=== PATIENT | female | born 1960 | race Caucasian/White ===

== ENCOUNTER 2017-09-07 19:34 | Emergency (ER) | payer MEDICARE, OTHER | END 2017-09-07 23:21 | disposition home or self-care (01) | LOC: E/R 19:34 | DX: T82.49XA Other complication of vascular dialysis catheter, initial encounter (principal); I12.0 Hypertensive chronic kidney disease with stage 5 chronic kidney disease or end stage renal disease; N18.6 End stage renal disease; E11.22 Type 2 diabetes mellitus with diabetic chronic kidney disease; Y82.8 Other medical devices associated with adverse incidents; Z99.2 Dependence on renal dialysis | CPT/HCPCS: 93931; 99284-25 ==

== ENCOUNTER 2017-09-13 05:03 | Inpatient (IN) | payer MEDICARE, OTHER ==
[2017-09-13 05:23] LABS: DO PEDI ANTIBODY SCREEN? 1
[2017-09-13 06:01] LABS: ADD MAN DIFF? NO
[2017-09-13 06:02] LABS: BASOPHIL # 0.1 10^3/ul (0.0-0.1); BASOPHILS % 0.5 % (0.0-2.0); EOSINOPHILS # 0.2 10^3/ul (0.0-0.5); EOSINOPHILS % 1.7 % (0.0-7.0); HEMATOCRIT 22.5 % (37.0-47.0); HEMOGLOBIN 7.1 g/dl (12.0-16.0); LYMPHOCYTES # 3.9 10^3/ul (0.8-2.9); LYMPHOCYTES % 34.1 % (15.0-51.0); MEAN CORPUSCULAR HGB CONC 31.6 g/dl (32.0-37.0); MEAN CORPUSCULAR VOLUME 98.3 fl (82.0-101.0); MONOCYTE # 0.7 10^3/ul (0.3-0.9); MONOCYTES % 6.1 % (0.0-11.0); NEUTROPHIL # 6.5 10^3/ul (1.6-7.5); PLATELET COUNT 204 10^3/UL (140-415); RED BLOOD COUNT 2.29 10^6/ul (4.20-5.40); RED CELL DISTRIBUTION WIDTH 14.1 % (11.5-14.5)
[2017-09-13 06:02] LABS: WHITE BLOOD COUNT 11.5 10^3/ul (4.8-10.8)
[2017-09-13 06:29] LABS: ANION GAP 27 (8-16); BLOOD UREA NITROGEN 35 mg/dl (7-20); CARBON DIOXIDE 18 mmol/L (21-31); CHLORIDE 102 mmol/L (97-110); CREATININE 5.92 mg/dl (0.44-1.00); GLUCOSE 258 mg/dl (70-220); POTASSIUM 4.1 mmol/L (3.5-5.1); SODIUM 143 mmol/L (135-144)
[2017-09-13 06:38] LABS: INR 1.14; PROTIME 14.8 Sec (11.9-14.9); PT RATIO 1.2
[2017-09-13 06:39] LABS: PARTIAL THROMBOPLASTIN TIME 36.5 Sec (25.0-35.0)
[2017-09-13 07:12] LABS: IMMEDIATE SPIN CROSSMATCH 1 5
[2017-09-13] MEDS ORDERED: ONDANSETRON 4 MG INJ IV ×3 (11:30→17:30)
[2017-09-13] MEDS: ACETAMINOPHEN 325 MG TAB PO (12:43)
[2017-09-13] MEDS ORDERED: BISACODYL 10 MG SUPP PR (14:30)
[2017-09-13] MEDS ORDERED: MAGNESIUM HYDROXIDE 30ML CUP PO (14:30)
[2017-09-13] MEDS ORDERED: DOCUSATE SODIUM 100 MG CAP PO (14:30)
[2017-09-13] MEDS ORDERED: NACL 0.9% 3 ML SYG IV (14:30)
[2017-09-13] MEDS ORDERED: ACETAMINOPHEN 650 MG SUPP PR (14:30)
[2017-09-13] MEDS ORDERED: GLUCAGON 1 MG INJ IM (15:00)
[2017-09-13] MEDS ORDERED: GLUCOSE GEL 15 GRAM TUBE BUCCAL (15:00)
[2017-09-13] MEDS ORDERED: GLUCOSE GEL 15 GRAM TUBE PO ×2 (15:00)
[2017-09-13] MEDS ORDERED: DEXTROSE 50% 50 ML SYRINGE IV ×2 (15:00)
[2017-09-13] MEDS ORDERED: ROCURONIUM 50 MG INJ (15:05)
[2017-09-13] MEDS ORDERED: PROPOFOL 20 ML (15:05)
[2017-09-13] MEDS ORDERED: LIDOCAINE 2% (SDV) 5 ML INJ (15:05)
[2017-09-13] MEDS ORDERED: SUCCINYLCHOLINE CHLORIDE 100 MG/5 ML SYG IV (15:05)
[2017-09-13] MEDS ORDERED: NEOSTIGMINE 3 MG/3 ML SYRINGE (15:05)
[2017-09-13] MEDS ORDERED: GLYCOPYRROLATE 0.4 MG INJ (15:05)
[2017-09-13] MEDS ORDERED: CEFAZOLIN 1 GM INJ (15:34)
[2017-09-13] MEDS: LIDOCAINE 1% (MPF) 30 ML INJ (16:47)
[2017-09-13] MEDS: HEPARIN 1000 UNITS/ML 10 ML INJ (16:47)
[2017-09-13] MEDS ORDERED: METOCLOPRAMIDE 10 MG INJ (16:52)
[2017-09-13] MEDS ORDERED: ONDANSETRON 4 MG INJ (16:52)
[2017-09-13 17:03] LABS: IRON 97 ug/dl (35-150)
[2017-09-13] MEDS ORDERED: MEPERIDINE 25 MG INJ (17:12)
[2017-09-13 17:14] LABS: % IRON SATURATION 67 % SAT (22-52); TOTAL IRON BINDING CAPACITY 145 ug/dl (241-421)
[2017-09-13] MEDS ORDERED: EPHEDrine SULFATE 50 MG/5 ML SYG IV (17:30)
[2017-09-13] MEDS ORDERED: OXYCODONE/ACETAMINOPHEN (5/325) TAB PO ×2 (17:30)
[2017-09-13] MEDS ORDERED: MIDAZOLAM 1 MG/ML 2 ML INJ IV (17:30)
[2017-09-13] MEDS ORDERED: DIPHENHYDRAMINE 50 MG INJ IV (17:30)
[2017-09-13] MEDS ORDERED: MEPERIDINE 25 MG INJ IV (17:30)
[2017-09-13] MEDS ORDERED: LABETALOL HCL 20MG INJ IV (17:30)
[2017-09-13] MEDS ORDERED: FENTAnyl 50 MCG/ML VIAL IV ×3 (17:30)
[2017-09-13] MEDS ORDERED: HYDROmorphONE 1 MG/5 ML IV SYRINGE IV ×2 (17:30)
[2017-09-13] MEDS ORDERED: hydrALAzine 20 MG INJ IV (17:30)
[2017-09-13] MEDS ORDERED: METOCLOPRAMIDE 10 MG INJ IV (17:30)
[2017-09-13] MEDS ORDERED: SEVELAMER CARBONATE 0.8 GM PKT PO (18:00)
[2017-09-13] MEDS: INSULIN ASPART [NOVOLOG] 3 ML PEN SC ×2 (18:00→22:00)
[2017-09-13] MEDS: HYDROmorphONE 1 MG/5 ML IV SYRINGE IV (18:01)
[2017-09-13] MEDS: morphine 2 MG INJ IV (18:40)
[2017-09-13] MEDS: PIPER-TAZO 2.25 GM (PMX) 50 ML IVPB (18:43)
[2017-09-13] MEDS: HYDROCODONE/APAP (5/325) TAB PO (20:51)
[2017-09-13] MEDS: METOPROLOL 25 MG TAB PO (20:52)
[2017-09-13] MEDS: ATORVASTATIN 40 MG TAB PO (20:52)
[2017-09-13 21:05] LABS: HEMOGLOBIN 8.2 g/dl (12.0-16.0)
[2017-09-14] MEDS: ACCU-CHEK XX (02:00)
[2017-09-14] MEDS: hydrALAzine 20 MG INJ IV ×2 (02:43→12:34)
[2017-09-14] MEDS: PIPER-TAZO 2.25 GM (PMX) 50 ML IVPB ×4 (05:29→23:15)
[2017-09-14] MEDS ORDERED: PANTOPRAZOLE 40 MG INJ IV (06:00)
[2017-09-14 06:05] LABS: ADD MAN DIFF? NO
[2017-09-14 06:07] LABS: WHITE BLOOD COUNT 7.7 10^3/ul (4.8-10.8)
[2017-09-14 06:07] LABS: BASOPHILS % 0.4 % (0.0-2.0); EOSINOPHILS # 0.1 10^3/ul (0.0-0.5); EOSINOPHILS % 1.3 % (0.0-7.0); HEMATOCRIT 22.1 % (37.0-47.0); HEMOGLOBIN 7.3 g/dl (12.0-16.0); LYMPHOCYTES % 13.1 % (15.0-51.0); MEAN CORPUSCULAR HEMOGLOBIN 29.7 pg (29.0-33.0); MEAN CORPUSCULAR VOLUME 89.8 fl (82.0-101.0); MEAN PLATELET VOLUME 10.4 fl (7.4-10.4); MONOCYTE # 0.5 10^3/ul (0.3-0.9); NEUTROPHILS % 77.8 % (39.0-77.0); PLATELET COUNT 147 10^3/UL (140-415); RED BLOOD COUNT 2.46 10^6/ul (4.20-5.40); RED CELL DISTRIBUTION WIDTH 15.5 % (11.5-14.5)
[2017-09-14 06:24] LABS: HEMOGLOBIN A1C 5.1 % (0-5.9)
[2017-09-14 06:43] LABS: ALANINE AMINOTRANSFERASE 23 IU/L (13-69); ALBUMIN 2.8 g/dl (3.3-4.9); ALBUMIN/GLOBULIN RATIO 1.07; ALKALINE PHOSPHATASE 67 IU/L (42-121); ANION GAP 16 (8-16); ASPARTATE AMINO TRANSFERASE 18 IU/L (15-46); BLOOD UREA NITROGEN 56 mg/dl (7-20); CARBON DIOXIDE 26 mmol/L (21-31); CHLORIDE 106 mmol/L (97-110); CHOL/HDL RATIO 2.5 RATIO; CHOLESTEROL 88 mg/dl (100-200); CREATININE 6.73 mg/dl (0.44-1.00); GLUCOSE 87 mg/dl (70-220); HDL CHOLESTEROL 34 mg/dl (37-92); LDL CHOLESTEROL,CALCULATED 32 mg/dl; MAGNESIUM 2.1 mg/dl (1.7-2.5); PHOSPHORUS 6.2 mg/dl (2.5-4.9); POTASSIUM 4.8 mmol/L (3.5-5.1); SODIUM 143 mmol/L (135-144); TOTAL PROTEIN 5.4 g/dl (6.1-8.1); TRIGLYCERIDES 108 mg/dl (0-149)
[2017-09-14 06:52] LABS: FREE THYROXINE INDEX (Calc) 3.35 ug/ml (0.65-3.89); T3 UPTAKE 37.2 % (23.5-40.5)
[2017-09-14] MEDS: INSULIN ASPART [NOVOLOG] 3 ML PEN SC ×4 (08:15→20:40)
[2017-09-14] MEDS: SEVELAMER CARBONATE 800 MG TABLET PO ×2 (08:20→12:34)
[2017-09-14] MEDS: PANTOPRAZOLE (EC) 40 MG TAB PO (08:20)
[2017-09-14] MEDS: METOPROLOL 25 MG TAB PO ×3 (09:00→20:40)
[2017-09-14] MEDS: AMLODIPINE 10 MG TAB PO ×2 (09:00→13:07)
[2017-09-14] MEDS: FUROSEMIDE 40 MG TAB PO (09:00)
[2017-09-14 13:04] LABS: HEPATITIS B SURFACE ANTIGEN NEGATIVE (NEGATIVE)
[2017-09-14] MEDS: morphine 2 MG INJ IV (13:08)
[2017-09-14] MEDS: LORAZEPAM 2 MG INJ IV (13:40)
[2017-09-14] MEDS ORDERED: ONDANSETRON 4 MG INJ IV (14:00)
[2017-09-14] MEDS ORDERED: ACETAMINOPHEN 325 MG TAB PO (14:00)
[2017-09-14] MEDS ORDERED: SOD CHLORIDE 0.9% 250 ML IV* (14:17)
[2017-09-14] MEDS: LABETALOL HCL 20MG INJ IV (16:20)
[2017-09-14] MEDS: EPOETIN 10000 UNITS/1 ML INJ (ESRD) SC (17:00)
[2017-09-14] MEDS: SEVELAMER CARBONATE 0.8 GM PKT PO (18:05)
[2017-09-14] MEDS: ATORVASTATIN 40 MG TAB PO (20:42)
[2017-09-15] MEDS: ACCU-CHEK XX (02:00)
[2017-09-15 02:01] LABS: HEPATITIS B SURFACE ANTIBODY POSITIVE (NEGATIVE)
[2017-09-15] MEDS: HYDROCODONE/APAP (5/325) TAB PO (04:38)
[2017-09-15] MEDS: PIPER-TAZO 2.25 GM (PMX) 50 ML IVPB ×2 (07:45→18:52)
[2017-09-15] MEDS: INSULIN ASPART [NOVOLOG] 3 ML PEN SC ×4 (08:00→20:33)
[2017-09-15] MEDS: SEVELAMER CARBONATE 0.8 GM PKT PO ×3 (08:42→17:26)
[2017-09-15] MEDS: FUROSEMIDE 40 MG TAB PO (08:46)
[2017-09-15] MEDS: PANTOPRAZOLE (EC) 40 MG TAB PO (08:48)
[2017-09-15] MEDS: METOPROLOL 25 MG TAB PO ×2 (08:49→20:27)
[2017-09-15] MEDS: AMLODIPINE 10 MG TAB PO (08:49)
[2017-09-15 09:10] LABS: ADD MAN DIFF? NO
[2017-09-15 09:15] LABS: WHITE BLOOD COUNT 7.1 10^3/ul (4.8-10.8)
[2017-09-15 09:15] LABS: BASOPHILS % 0.4 % (0.0-2.0); EOSINOPHILS # 0.1 10^3/ul (0.0-0.5); EOSINOPHILS % 1.3 % (0.0-7.0); HEMATOCRIT 24.5 % (37.0-47.0); HEMOGLOBIN 8.2 g/dl (12.0-16.0); LYMPHOCYTES # 0.8 10^3/ul (0.8-2.9); LYMPHOCYTES % 11.8 % (15.0-51.0); MEAN CORPUSCULAR HEMOGLOBIN 29.8 pg (29.0-33.0); MEAN CORPUSCULAR HGB CONC 33.5 g/dl (32.0-37.0); MEAN CORPUSCULAR VOLUME 89.1 fl (82.0-101.0); MEAN PLATELET VOLUME 9.5 fl (7.4-10.4); MONOCYTE # 0.5 10^3/ul (0.3-0.9); MONOCYTES % 6.8 % (0.0-11.0); NEUTROPHIL # 5.6 10^3/ul (1.6-7.5); NEUTROPHILS % 79.4 % (39.0-77.0); PLATELET COUNT 145 10^3/UL (140-415); RED BLOOD COUNT 2.75 10^6/ul (4.20-5.40); RED CELL DISTRIBUTION WIDTH 15.1 % (11.5-14.5)
[2017-09-15 09:37] LABS: ANION GAP 11 (8-16); BLOOD UREA NITROGEN 16 mg/dl (7-20); CALCIUM 8.9 mg/dl (8.4-10.2); CARBON DIOXIDE 30 mmol/L (21-31); CHLORIDE 103 mmol/L (97-110); CREATININE 3.26 mg/dl (0.44-1.00); GLUCOSE 86 mg/dl (70-220); MAGNESIUM 1.9 mg/dl (1.7-2.5); PHOSPHORUS 3.7 mg/dl (2.5-4.9); POTASSIUM 4.2 mmol/L (3.5-5.1); SODIUM 140 mmol/L (135-144)
[2017-09-15] MEDS: ACETAMINOPHEN 325 MG TAB PO (14:37)
[2017-09-15 19:16] LABS: FOLATE > 20.0 ng/ml (2.8-20.0)
[2017-09-15] MEDS: ATORVASTATIN 40 MG TAB PO (20:27)
[2017-09-16] MEDS: PIPER-TAZO 2.25 GM (PMX) 50 ML IVPB ×4 (00:26→21:43)
[2017-09-16] MEDS: HYDROCODONE/APAP (5/325) TAB PO (00:30)
[2017-09-16] MEDS: ACCU-CHEK XX (02:00)
[2017-09-16] MEDS: hydrALAzine 20 MG INJ IV ×3 (05:20→21:05)
[2017-09-16 06:09] LABS: ADD MAN DIFF? NO
[2017-09-16 06:24] LABS: BASOPHILS % 0.4 % (0.0-2.0); EOSINOPHILS # 0.2 10^3/ul (0.0-0.5); EOSINOPHILS % 2.2 % (0.0-7.0); HEMATOCRIT 26.8 % (37.0-47.0); LYMPHOCYTES % 12.8 % (15.0-51.0); MEAN CORPUSCULAR HEMOGLOBIN 29.9 pg (29.0-33.0); MEAN CORPUSCULAR HGB CONC 33.6 g/dl (32.0-37.0); MEAN PLATELET VOLUME 9.1 fl (7.4-10.4); MONOCYTE # 0.4 10^3/ul (0.3-0.9); MONOCYTES % 5.6 % (0.0-11.0); NEUTROPHILS % 78.3 % (39.0-77.0); PLATELET COUNT 149 10^3/UL (140-415); RED BLOOD COUNT 3.01 10^6/ul (4.20-5.40); RED CELL DISTRIBUTION WIDTH 14.8 % (11.5-14.5)
[2017-09-16 06:24] LABS: WHITE BLOOD COUNT 7.6 10^3/ul (4.8-10.8)
[2017-09-16 06:30] LABS: ANION GAP 14 (8-16); BLOOD UREA NITROGEN 29 mg/dl (7-20); CALCIUM 9.1 mg/dl (8.4-10.2); CARBON DIOXIDE 28 mmol/L (21-31); CHLORIDE 103 mmol/L (97-110); CREATININE 4.83 mg/dl (0.44-1.00); GLUCOSE 99 mg/dl (70-220); POTASSIUM 4.7 mmol/L (3.5-5.1); SODIUM 140 mmol/L (135-144)
[2017-09-16] MEDS: SEVELAMER CARBONATE 0.8 GM PKT PO ×3 (08:28→17:23)
[2017-09-16] MEDS: PANTOPRAZOLE (EC) 40 MG TAB PO (08:30)
[2017-09-16] MEDS: FUROSEMIDE 40 MG TAB PO (08:32)
[2017-09-16] MEDS: METOPROLOL 25 MG TAB PO ×2 (08:32→20:28)
[2017-09-16] MEDS: AMLODIPINE 10 MG TAB PO (08:33)
[2017-09-16] MEDS: ACETAMINOPHEN 325 MG TAB PO (12:10)
[2017-09-16] MEDS: morphine LIQ (10 MG/5 ML) CUP PO (12:37)
[2017-09-16] MEDS: ATORVASTATIN 40 MG TAB PO (20:28)
[2017-09-17] MEDS: hydrALAzine 20 MG INJ IV ×4 (02:15→23:02)
[2017-09-17] MEDS: PIPER-TAZO 2.25 GM (PMX) 50 ML IVPB ×3 (06:32→22:08)
[2017-09-17] MEDS: PANTOPRAZOLE (EC) 40 MG TAB PO (06:32)
[2017-09-17 07:15] LABS: ADD MAN DIFF? NO
[2017-09-17 07:20] LABS: WHITE BLOOD COUNT 7.1 10^3/ul (4.8-10.8)
[2017-09-17 07:20] LABS: BASOPHILS % 0.3 % (0.0-2.0); EOSINOPHILS # 0.2 10^3/ul (0.0-0.5); EOSINOPHILS % 3.4 % (0.0-7.0); HEMATOCRIT 27.2 % (37.0-47.0); LYMPHOCYTES % 14.6 % (15.0-51.0); MEAN CORPUSCULAR HEMOGLOBIN 29.2 pg (29.0-33.0); MEAN CORPUSCULAR HGB CONC 33.1 g/dl (32.0-37.0); MEAN CORPUSCULAR VOLUME 88.3 fl (82.0-101.0); MEAN PLATELET VOLUME 9.1 fl (7.4-10.4); MONOCYTE # 0.4 10^3/ul (0.3-0.9); MONOCYTES % 5.6 % (0.0-11.0); NEUTROPHIL # 5.4 10^3/ul (1.6-7.5); NEUTROPHILS % 75.3 % (39.0-77.0); PLATELET COUNT 161 10^3/UL (140-415); RED BLOOD COUNT 3.08 10^6/ul (4.20-5.40); RED CELL DISTRIBUTION WIDTH 14.7 % (11.5-14.5)
[2017-09-17 07:42] LABS: ANION GAP 14 (8-16); BLOOD UREA NITROGEN 39 mg/dl (7-20); CALCIUM 9.6 mg/dl (8.4-10.2); CARBON DIOXIDE 28 mmol/L (21-31); CHLORIDE 101 mmol/L (97-110); CREATININE 6.43 mg/dl (0.44-1.00); GLUCOSE 83 mg/dl (70-220); POTASSIUM 5.4 mmol/L (3.5-5.1); SODIUM 138 mmol/L (135-144)
[2017-09-17] MEDS ORDERED: NIFEdipine (XL) 30 MG TAB PO (09:00)
[2017-09-17] MEDS: SEVELAMER CARBONATE 0.8 GM PKT PO ×3 (09:02→18:15)
[2017-09-17] MEDS: METOPROLOL 25 MG TAB PO ×2 (11:02→20:31)
[2017-09-17] MEDS: LISINOPRIL 10 MG TAB PO ×2 (12:01→20:31)
[2017-09-17] MEDS: AMLODIPINE 10 MG TAB PO (12:02)
[2017-09-17] MEDS: HEPARIN 1000 UNITS/ML 10 ML INJ CATHETER (12:55)
[2017-09-17] MEDS: FUROSEMIDE 40 MG TAB PO (13:36)
[2017-09-17] MEDS: EPOETIN 10000 UNITS/1 ML INJ (ESRD) SC (18:16)
[2017-09-17] MEDS: ATORVASTATIN 40 MG TAB PO (20:30)
[2017-09-18] MEDS: hydrALAzine 20 MG INJ IV (05:28)
[2017-09-18] MEDS: PIPER-TAZO 2.25 GM (PMX) 50 ML IVPB ×3 (06:17→21:41)
[2017-09-18] MEDS: PANTOPRAZOLE (EC) 40 MG TAB PO (06:36)
[2017-09-18] MEDS: SEVELAMER CARBONATE 0.8 GM PKT PO ×3 (09:31→17:31)
[2017-09-18] MEDS: FUROSEMIDE 40 MG TAB PO (09:33)
[2017-09-18] MEDS: LISINOPRIL 10 MG TAB PO ×2 (09:34→20:16)
[2017-09-18] MEDS: AMLODIPINE 10 MG TAB PO (09:34)
[2017-09-18] MEDS: METOPROLOL 25 MG TAB PO ×2 (09:35→20:16)
[2017-09-18] MEDS: ATORVASTATIN 40 MG TAB PO (20:16)
[2017-09-19] MEDS: hydrALAzine 20 MG INJ IV ×2 (02:11→19:56)
[2017-09-19] MEDS: HYDROCODONE/APAP (5/325) TAB PO (02:12)
[2017-09-19] MEDS: PIPER-TAZO 2.25 GM (PMX) 50 ML IVPB ×2 (05:49→14:00)
[2017-09-19] MEDS: PANTOPRAZOLE (EC) 40 MG TAB PO (06:45)
[2017-09-19] MEDS: METOPROLOL 25 MG TAB PO ×2 (08:46→19:56)
[2017-09-19] MEDS: SEVELAMER CARBONATE 0.8 GM PKT PO ×3 (08:46→18:28)
[2017-09-19] MEDS: FUROSEMIDE 40 MG TAB PO (08:46)
[2017-09-19] MEDS: AMLODIPINE 10 MG TAB PO (08:47)
[2017-09-19] MEDS: LISINOPRIL 10 MG TAB PO ×2 (08:47→19:56)
[2017-09-19] MEDS: ACETAMINOPHEN 325 MG TAB PO ×2 (12:37→19:56)
[2017-09-19] MEDS: EPOETIN 10000 UNITS/1 ML INJ (ESRD) SC (18:29)
[2017-09-19] MEDS: HEPARIN 1000 UNITS/ML 10 ML INJ CATHETER (18:33)
[2017-09-19] MEDS: FLUCONAZOLE 100 MG TAB PO (19:09)
[2017-09-19] MEDS: ATORVASTATIN 40 MG TAB PO (19:56)
== END 2017-09-19 21:02 | disposition home or self-care (01) | DRG 252 ==
LOC: MS4 09-14 15:15 → E/R 05:03 → MS2 11:21
PROVIDERS: Internal Medicine
PROC: 03L70ZZ Occlusion of Right Brachial Artery, Open Approach (ICD-10-PCS; principal; 2017-09-13 15:00)
PROC: 0XP Anatomical Regions, Upper Extremities, Removal (ICD-10-PCS; 2017-09-13 15:00)
PROC: 2W1AX6Z Compression of Right Upper Arm using Pressure Dressing (ICD-10-PCS; 2017-09-13 15:00)
PROC: 02H633Z Insertion of Infusion Device into Right Atrium, Percutaneous Approach (ICD-10-PCS; 2017-09-13 15:00)
PROC: 30233N1 Transfusion of Nonautologous Red Blood Cells into Peripheral Vein, Percutaneous Approach (ICD-10-PCS; 2017-09-13 15:06)
PROC: 30233N1 Transfusion of Nonautologous Red Blood Cells into Peripheral Vein, Percutaneous Approach (ICD-10-PCS; 2017-09-13 15:06)
PROC: 5A1D70Z Performance of Urinary Filtration, Intermittent, Less than 6 Hours Per Day (ICD-10-PCS; 2017-09-13 15:06)
PROC: 5A1D70Z Performance of Urinary Filtration, Intermittent, Less than 6 Hours Per Day (ICD-10-PCS; 2017-09-13 15:06)
PROC: 5A1D70Z Performance of Urinary Filtration, Intermittent, Less than 6 Hours Per Day (ICD-10-PCS; 2017-09-13 15:06)
DX: T82.838A Hemorrhage due to vascular prosthetic devices, implants and grafts, initial encounter (principal); N18.6 End stage renal disease; I63.9 Cerebral infarction, unspecified; R57.1 Hypovolemic shock; I12.0 Hypertensive chronic kidney disease with stage 5 chronic kidney disease or end stage renal disease; D62 Acute posthemorrhagic anemia; T82.7XXA Infection and inflammatory reaction due to other cardiac and vascular devices, implants and grafts, initial encounter; E11.22 Type 2 diabetes mellitus with diabetic chronic kidney disease; I16.0 Hypertensive urgency; R55 Syncope and collapse; E03.9 Hypothyroidism, unspecified; E78.5 Hyperlipidemia, unspecified; D48.5 Neoplasm of uncertain behavior of skin; I35.0 Nonrheumatic aortic (valve) stenosis; Z99.2 Dependence on renal dialysis; Z86.73 Personal history of transient ischemic attack (TIA), and cerebral infarction without residual deficits; Z79.4 Long term (current) use of insulin
CPT/HCPCS: 36415; 36430; 70450; 70551; 71045; 80048; 80053; 80061; 82607; 82728; 82746; 82962; 83036; 83540; 83735; 84100; 84436; 84443; 84479; 85014; 85018; 85025; 85610; 85730; 86706; 86850; 86900; 86901; 86920; 87075; 87102; 87340; 88304; 90935; 93005; 93306; 93880; 93970; 97116; 97163; 97530; 99291-25

== ENCOUNTER 2017-10-01 14:22 | Emergency (ER) | payer MEDICARE, OTHER ==
[2017-10-01] MEDS: OXYCODONE/ACETAMINOPHEN (5/325) TAB PO (16:01)
== END 2017-10-01 16:33 | disposition home or self-care (01) ==
LOC: E/R 14:22
DX: I12.0 Hypertensive chronic kidney disease with stage 5 chronic kidney disease or end stage renal disease (principal); N18.6 End stage renal disease; I50.9 Heart failure, unspecified
CPT/HCPCS: 99283

== ENCOUNTER 2017-10-25 09:53 | Inpatient (IN) | payer MEDICARE, OTHER ==
[~2017-10-25 09:53] MED LIST: LIDOCAINE 2% (SDV) 5 ML INJ; PROPOFOL 200 MG INJ
[2017-10-25 11:15] LABS: ADD MAN DIFF? NO
[2017-10-25 11:24] LABS: BASOPHILS % 0.7 % (0.0-2.0); EOSINOPHILS # 0.1 10^3/ul (0.0-0.5); EOSINOPHILS % 1.8 % (0.0-7.0); HEMATOCRIT 26.6 % (37.0-47.0); HEMOGLOBIN 8.5 g/dl (12.0-16.0); LYMPHOCYTES # 1.1 10^3/ul (0.8-2.9); LYMPHOCYTES % 23.9 % (15.0-51.0); MEAN CORPUSCULAR HEMOGLOBIN 28.8 pg (29.0-33.0); MEAN CORPUSCULAR VOLUME 90.2 fl (82.0-101.0); MEAN PLATELET VOLUME 9.8 fl (7.4-10.4); MONOCYTE # 0.2 10^3/ul (0.3-0.9); MONOCYTES % 5.2 % (0.0-11.0); NEUTROPHILS % 68.2 % (39.0-77.0); PLATELET COUNT 105 10^3/UL (140-415); RED BLOOD COUNT 2.95 10^6/ul (4.20-5.40); RED CELL DISTRIBUTION WIDTH 14.7 % (11.5-14.5)
[2017-10-25 11:24] LABS: WHITE BLOOD COUNT 4.4 10^3/ul (4.8-10.8)
[2017-10-25 11:31] LABS: HOLD TRANSMISSIONS 1
[2017-10-25 11:54] LABS: ANION GAP 12 (8-16); BLOOD UREA NITROGEN 27 mg/dl (7-20); CARBON DIOXIDE 28 mmol/L (21-31); CHLORIDE 108 mmol/L (97-110); CREATININE 4.19 mg/dl (0.44-1.00); GLUCOSE 84 mg/dl (70-220); SODIUM 144 mmol/L (135-144)
[2017-10-25 11:55] LABS: INR 0.93; PROTIME 12.5 Sec (11.9-14.9)
[2017-10-25 11:56] LABS: PARTIAL THROMBOPLASTIN TIME 33.9 Sec (25.0-35.0)
[2017-10-25] MEDS ORDERED: HEPARIN 1000 UNITS/ML 10 ML INJ (12:55)
[2017-10-25] MEDS ORDERED: THROMBIN 5000 UNIT VIAL (12:55)
[2017-10-25] MEDS ORDERED: LIDOCAINE 1% (MPF) 30 ML INJ (12:55)
[2017-10-25] MEDS ORDERED: ROPIVACAINE 0.5 % 30 ML VIAL (13:20)
[2017-10-25] MEDS ORDERED: SODIUM CL BACTERIOSTATIC 30 ML INJ (13:34)
[2017-10-25] MEDS ORDERED: LABETALOL HCL 20MG INJ (13:57)
[2017-10-25] MEDS: BACITRACIN 50000 UNITS INJ (13:59)
[2017-10-25] MEDS ORDERED: METOCLOPRAMIDE 10 MG INJ IV (14:00)
[2017-10-25] MEDS ORDERED: HYDROmorphONE 1 MG/5 ML IV SYRINGE IV (14:00)
[2017-10-25] MEDS ORDERED: hydrALAzine 20 MG INJ IV (14:00)
[2017-10-25] MEDS ORDERED: FENTAnyl 50 MCG/ML VIAL IV ×2 (14:00)
[2017-10-25] MEDS ORDERED: DIPHENHYDRAMINE 50 MG INJ IV (14:00)
[2017-10-25] MEDS ORDERED: LABETALOL HCL 20MG INJ IV (14:00)
[2017-10-25] MEDS ORDERED: hydrALAzine 20 MG INJ (14:02)
[2017-10-25] MEDS: GELATIN SIZE 100 SPONGE (15:00)
[2017-10-25] MEDS: HYDROmorphONE 1 MG/5 ML IV SYRINGE IV ×2 (15:12→15:27)
[2017-10-25] MEDS: ONDANSETRON 4 MG INJ IV ×2 (15:12→17:49)
[2017-10-25] MEDS ORDERED: NACL 0.9% 3 ML SYG IV (15:30)
[2017-10-25] MEDS ORDERED: ALBUTEROL/IPRATROPIUM (NEB) 3 ML AMP HHN (15:30)
[2017-10-25] MEDS: morphine 2 MG INJ IV ×2 (17:09→20:44)
[2017-10-25] MEDS: SEVELAMER CARBONATE 800 MG TABLET PO (17:09)
[2017-10-25] MEDS ORDERED: SEVELAMER CARBONATE 0.8 GM PKT PO ×2 (18:00)
[2017-10-25] MEDS: METOPROLOL 25 MG TAB PO (20:38)
[2017-10-25] MEDS: ATORVASTATIN 40 MG TAB PO (20:38)
[2017-10-25] MEDS ORDERED: ATORVASTATIN 40 MG TAB PO ×2 (21:00)
[2017-10-25] MEDS ORDERED: METOPROLOL 25 MG TAB PO ×2 (21:00)
[2017-10-25] MEDS: hydrALAzine 20 MG INJ IV (23:50)
[2017-10-26] MEDS: LORAZEPAM 0.5 MG TAB PO (01:09)
[2017-10-26] MEDS: morphine 2 MG INJ IV ×3 (01:09→08:28)
[2017-10-26] MEDS: hydrALAzine 20 MG INJ IV (04:28)
[2017-10-26] MEDS: PANTOPRAZOLE (EC) 40 MG TAB PO (05:50)
[2017-10-26] MEDS ORDERED: PANTOPRAZOLE (EC) 40 MG TAB PO ×2 (07:00)
[2017-10-26] MEDS: AMLODIPINE 10 MG TAB PO (08:22)
[2017-10-26] MEDS: SEVELAMER CARBONATE 800 MG TABLET PO ×3 (08:28→16:54)
[2017-10-26] MEDS: FUROSEMIDE 40 MG TAB PO (08:28)
[2017-10-26] MEDS: METOPROLOL 25 MG TAB PO ×2 (08:29→20:45)
[2017-10-26] MEDS ORDERED: FUROSEMIDE 40 MG TAB PO ×2 (09:00)
[2017-10-26] MEDS ORDERED: AMLODIPINE 10 MG TAB PO ×2 (09:00)
[2017-10-26 09:14] LABS: ADD MAN DIFF? NO
[2017-10-26 09:18] LABS: WHITE BLOOD COUNT 6.8 10^3/ul (4.8-10.8)
[2017-10-26 09:18] LABS: ABNORMAL IP MESSAGE 1; BASOPHILS % 0.1 % (0.0-2.0); EOSINOPHILS % 0.1 % (0.0-7.0); HEMATOCRIT 17.1 % (37.0-47.0); LYMPHOCYTES # 0.8 10^3/ul (0.8-2.9); LYMPHOCYTES % 12.4 % (15.0-51.0); MEAN CORPUSCULAR HGB CONC 31.6 g/dl (32.0-37.0); MEAN CORPUSCULAR VOLUME 91.9 fl (82.0-101.0); MEAN PLATELET VOLUME 10.4 fl (7.4-10.4); MONOCYTE # 0.4 10^3/ul (0.3-0.9); MONOCYTES % 5.3 % (0.0-11.0); NEUTROPHIL # 5.6 10^3/ul (1.6-7.5); NEUTROPHILS % 81.7 % (39.0-77.0); PLATELET COUNT 96 10^3/UL (140-415); RED BLOOD COUNT 1.86 10^6/ul (4.20-5.40); RED CELL DISTRIBUTION WIDTH 15.2 % (11.5-14.5)
[2017-10-26 09:39] LABS: HEMOGLOBIN 5.4 g/dl (12.0-16.0); PATH REVIEW? YES
[2017-10-26 09:46] LABS: ALANINE AMINOTRANSFERASE 26 IU/L (13-69); ALBUMIN 3.5 g/dl (3.3-4.9); ALBUMIN/GLOBULIN RATIO 1.25; ALKALINE PHOSPHATASE 81 IU/L (42-121); ANION GAP 13 (8-16); ASPARTATE AMINO TRANSFERASE 22 IU/L (15-46); BLOOD UREA NITROGEN 39 mg/dl (7-20); CALCIUM 9.5 mg/dl (8.4-10.2); CARBON DIOXIDE 26 mmol/L (21-31); CHLORIDE 107 mmol/L (97-110); CREATININE 5.79 mg/dl (0.44-1.00); GLUCOSE 89 mg/dl (70-220); MAGNESIUM 2.3 mg/dl (1.7-2.5); POTASSIUM 4.1 mmol/L (3.5-5.1); SODIUM 142 mmol/L (135-144); TOTAL PROTEIN 6.3 g/dl (6.1-8.1)
[2017-10-26 11:59] LABS: HEPATITIS B SURFACE ANTIGEN NEGATIVE (NEGATIVE)
[2017-10-26 12:15] LABS: IMMEDIATE SPIN CROSSMATCH 1 3
[2017-10-26 12:55] LABS: HEPATITIS B SURFACE ANTIBODY POSITIVE (NEGATIVE)
[2017-10-26] MEDS: HEPARIN 1000 UNITS/ML 10 ML INJ CATHETER (13:37)
[2017-10-26] MEDS: ATORVASTATIN 40 MG TAB PO (20:45)
[2017-10-27] MEDS: hydrALAzine 20 MG INJ IV ×5 (00:12→17:50)
[2017-10-27] MEDS: PANTOPRAZOLE (EC) 40 MG TAB PO (05:15)
[2017-10-27] MEDS: SEVELAMER CARBONATE 800 MG TABLET PO ×3 (08:43→17:50)
[2017-10-27] MEDS: METOPROLOL 25 MG TAB PO ×2 (08:43→20:58)
[2017-10-27] MEDS: FUROSEMIDE 40 MG TAB PO (08:43)
[2017-10-27] MEDS: AMLODIPINE 10 MG TAB PO (08:44)
[2017-10-27] MEDS ORDERED: LABETALOL HCL 20MG INJ IV (09:30)
[2017-10-27] MEDS: ACETAMINOPHEN 325 MG TAB PO (10:32)
[2017-10-27 11:16] LABS: ADD MAN DIFF? NO
[2017-10-27 11:31] LABS: BASOPHILS % 0.5 % (0.0-2.0); EOSINOPHILS # 0.1 10^3/ul (0.0-0.5); HEMATOCRIT 24.1 % (37.0-47.0); LYMPHOCYTES % 12.8 % (15.0-51.0); MEAN CORPUSCULAR HEMOGLOBIN 29.3 pg (29.0-33.0); MEAN CORPUSCULAR HGB CONC 33.2 g/dl (32.0-37.0); MEAN CORPUSCULAR VOLUME 88.3 fl (82.0-101.0); MEAN PLATELET VOLUME 10.2 fl (7.4-10.4); MONOCYTE # 0.4 10^3/ul (0.3-0.9); MONOCYTES % 5.3 % (0.0-11.0); NEUTROPHIL # 6.3 10^3/ul (1.6-7.5); NEUTROPHILS % 79.8 % (39.0-77.0); RED BLOOD COUNT 2.73 10^6/ul (4.20-5.40); RED CELL DISTRIBUTION WIDTH 14.9 % (11.5-14.5)
[2017-10-27 11:31] LABS: WHITE BLOOD COUNT 7.9 10^3/ul (4.8-10.8)
[2017-10-27 11:34] LABS: ANION GAP 11 (8-16); BLOOD UREA NITROGEN 28 mg/dl (7-20); CALCIUM 9.2 mg/dl (8.4-10.2); CARBON DIOXIDE 26 mmol/L (21-31); CHLORIDE 102 mmol/L (97-110); CREATININE 5.09 mg/dl (0.44-1.00); GLUCOSE 110 mg/dl (70-220); MAGNESIUM 2.1 mg/dl (1.7-2.5); PHOSPHORUS 3.1 mg/dl (2.5-4.9); POTASSIUM 4.3 mmol/L (3.5-5.1); SODIUM 135 mmol/L (135-144)
[2017-10-27 11:38] LABS: PLATELET COUNT 132 10^3/UL (140-415); POSITIVE DIFF @See below
[2017-10-27] MEDS: EPOETIN 10000 UNITS/1 ML INJ (ESRD) SC (12:36)
[2017-10-27] MEDS: ATORVASTATIN 40 MG TAB PO (20:58)
[2017-10-28] MEDS: hydrALAzine 20 MG INJ IV ×4 (00:38→15:57)
[2017-10-28] MEDS: PANTOPRAZOLE (EC) 40 MG TAB PO (05:31)
[2017-10-28 05:37] LABS: ADD MAN DIFF? NO
[2017-10-28 05:53] LABS: WHITE BLOOD COUNT 7.5 10^3/ul (4.8-10.8)
[2017-10-28 05:53] LABS: BASOPHILS % 0.5 % (0.0-2.0); EOSINOPHILS # 0.2 10^3/ul (0.0-0.5); EOSINOPHILS % 3.2 % (0.0-7.0); HEMATOCRIT 24.1 % (37.0-47.0); HEMOGLOBIN 7.8 g/dl (12.0-16.0); LYMPHOCYTES # 1.2 10^3/ul (0.8-2.9); LYMPHOCYTES % 16.4 % (15.0-51.0); MEAN CORPUSCULAR HGB CONC 32.4 g/dl (32.0-37.0); MEAN CORPUSCULAR VOLUME 89.6 fl (82.0-101.0); MEAN PLATELET VOLUME 9.9 fl (7.4-10.4); MONOCYTE # 0.5 10^3/ul (0.3-0.9); MONOCYTES % 6.4 % (0.0-11.0); NEUTROPHIL # 5.4 10^3/ul (1.6-7.5); NEUTROPHILS % 72.7 % (39.0-77.0); PLATELET COUNT 130 10^3/UL (140-415); RED BLOOD COUNT 2.69 10^6/ul (4.20-5.40); RED CELL DISTRIBUTION WIDTH 14.9 % (11.5-14.5)
[2017-10-28 06:13] LABS: ANION GAP 13 (8-16); BLOOD UREA NITROGEN 40 mg/dl (7-20); CALCIUM 9.6 mg/dl (8.4-10.2); CARBON DIOXIDE 26 mmol/L (21-31); CHLORIDE 102 mmol/L (97-110); CREATININE 7.06 mg/dl (0.44-1.00); GLUCOSE 96 mg/dl (70-220); MAGNESIUM 2.2 mg/dl (1.7-2.5); PHOSPHORUS 3.6 mg/dl (2.5-4.9); POTASSIUM 4.3 mmol/L (3.5-5.1); SODIUM 137 mmol/L (135-144)
[2017-10-28] MEDS: AMLODIPINE 10 MG TAB PO (08:49)
[2017-10-28] MEDS: METOPROLOL 25 MG TAB PO ×2 (08:49→21:05)
[2017-10-28] MEDS: FUROSEMIDE 40 MG TAB PO (08:50)
[2017-10-28] MEDS: SEVELAMER CARBONATE 800 MG TABLET PO ×3 (08:51→17:34)
[2017-10-28] MEDS: ONDANSETRON 4 MG INJ IV (19:51)
[2017-10-28] MEDS: ACETAMINOPHEN 325 MG TAB PO (20:00)
[2017-10-28] MEDS: ATORVASTATIN 40 MG TAB PO (20:00)
[2017-10-29] MEDS ORDERED: ALBUMIN HUMAN 25% 100 ML IV (01:30)
[2017-10-29] MEDS: HEPARIN 1000 UNITS/ML 10 ML INJ CATHETER (04:05)
[2017-10-29] MEDS: PANTOPRAZOLE (EC) 40 MG TAB PO ×2 (05:07→05:10)
[2017-10-29] MEDS: ACETAMINOPHEN 325 MG TAB PO (05:27)
[2017-10-29 06:46] LABS: ADD MAN DIFF? NO
[2017-10-29 06:51] LABS: WHITE BLOOD COUNT 5.9 10^3/ul (4.8-10.8)
[2017-10-29 06:51] LABS: BASOPHILS % 0.3 % (0.0-2.0); EOSINOPHILS # 0.2 10^3/ul (0.0-0.5); EOSINOPHILS % 3.2 % (0.0-7.0); HEMOGLOBIN 8.2 g/dl (12.0-16.0); LYMPHOCYTES # 0.7 10^3/ul (0.8-2.9); LYMPHOCYTES % 12.2 % (15.0-51.0); MEAN CORPUSCULAR HEMOGLOBIN 29.8 pg (29.0-33.0); MEAN CORPUSCULAR HGB CONC 32.8 g/dl (32.0-37.0); MEAN CORPUSCULAR VOLUME 90.9 fl (82.0-101.0); MEAN PLATELET VOLUME 9.5 fl (7.4-10.4); MONOCYTE # 0.4 10^3/ul (0.3-0.9); MONOCYTES % 6.5 % (0.0-11.0); NEUTROPHIL # 4.6 10^3/ul (1.6-7.5); NEUTROPHILS % 77.3 % (39.0-77.0); NUCLEATED RED BLOOD CELLS% 0.3 /100WBC (0.0-0.0); PLATELET COUNT 165 10^3/UL (140-415); RED BLOOD COUNT 2.75 10^6/ul (4.20-5.40)
[2017-10-29 07:19] LABS: ANION GAP 10 (8-16); BLOOD UREA NITROGEN 14 mg/dl (7-20); CALCIUM 9.1 mg/dl (8.4-10.2); CARBON DIOXIDE 31 mmol/L (21-31); CHLORIDE 103 mmol/L (97-110); CREATININE 2.92 mg/dl (0.44-1.00); GLUCOSE 92 mg/dl (70-220); PHOSPHORUS 2.5 mg/dl (2.5-4.9); POTASSIUM 3.9 mmol/L (3.5-5.1); SODIUM 140 mmol/L (135-144)
[2017-10-29] MEDS: SEVELAMER CARBONATE 800 MG TABLET PO ×3 (08:17→17:06)
[2017-10-29] MEDS: FUROSEMIDE 40 MG TAB PO (08:17)
[2017-10-29] MEDS: AMLODIPINE 10 MG TAB PO (08:18)
[2017-10-29] MEDS: METOPROLOL 25 MG TAB PO (08:18)
[2017-10-29] MEDS: LACTULOSE 30ML CUP PO (13:24)
[2017-10-29] MEDS: HYDROCODONE/APAP (5/325) TAB PO (16:09)
[2017-10-29] MEDS: morphine 2 MG INJ IV (16:29)
== END 2017-10-29 17:25 | disposition home health service (06) | DRG 252 ==
LOC: SDS 09:53 → MS4 15:06
PROVIDERS: Surgery Vascular Surgery
PROC: 03BY0ZZ Excision of Upper Artery, Open Approach (ICD-10-PCS; principal; 2017-10-25 12:30)
PROC: 5A1D70Z Performance of Urinary Filtration, Intermittent, Less than 6 Hours Per Day (ICD-10-PCS; 2017-10-25 13:16)
PROC: 5A1D70Z Performance of Urinary Filtration, Intermittent, Less than 6 Hours Per Day (ICD-10-PCS; 2017-10-25 13:16)
DX: T82.7XXA Infection and inflammatory reaction due to other cardiac and vascular devices, implants and grafts, initial encounter (principal); N18.6 End stage renal disease; D62 Acute posthemorrhagic anemia; I12.0 Hypertensive chronic kidney disease with stage 5 chronic kidney disease or end stage renal disease; E11.22 Type 2 diabetes mellitus with diabetic chronic kidney disease; Z99.2 Dependence on renal dialysis; G89.29 Other chronic pain; E83.89 Other disorders of mineral metabolism; E78.5 Hyperlipidemia, unspecified; E03.9 Hypothyroidism, unspecified
CPT/HCPCS: 36430; 71045; 80048; 80053; 82962; 83735; 84100; 85025; 85610; 85730; 86706; 86850; 86900; 86901; 86920; 87340; 88304; 90935; G0378

== ENCOUNTER 2017-11-15 11:01 | Inpatient (IN) | payer MEDICARE, OTHER ==
[2017-11-15 13:59] LABS: ADD MAN DIFF? NO
[2017-11-15 14:02] LABS: WHITE BLOOD COUNT 5.4 10^3/ul (4.8-10.8)
[2017-11-15 14:02] LABS: BASOPHILS % 0.6 % (0.0-2.0); EOSINOPHILS # 0.2 10^3/ul (0.0-0.5); EOSINOPHILS % 3.4 % (0.0-7.0); HEMATOCRIT 27.5 % (37.0-47.0); HEMOGLOBIN 8.7 g/dl (12.0-16.0); LYMPHOCYTES % 18.7 % (15.0-51.0); MEAN CORPUSCULAR HEMOGLOBIN 30.2 pg (29.0-33.0); MEAN CORPUSCULAR HGB CONC 31.6 g/dl (32.0-37.0); MEAN CORPUSCULAR VOLUME 95.5 fl (82.0-101.0); MONOCYTE # 0.4 10^3/ul (0.3-0.9); MONOCYTES % 6.5 % (0.0-11.0); NEUTROPHIL # 3.8 10^3/ul (1.6-7.5); NEUTROPHILS % 70.4 % (39.0-77.0); PLATELET COUNT 136 10^3/UL (140-415); RED BLOOD COUNT 2.88 10^6/ul (4.20-5.40); RED CELL DISTRIBUTION WIDTH 16.9 % (11.5-14.5)
[2017-11-15] MEDS: PIPER-TAZO 3.375 GM IV (PMX) 100 ML IVPB (14:14)
[2017-11-15 14:18] LABS: ALANINE AMINOTRANSFERASE 7 IU/L (13-69); ALBUMIN 4.4 g/dl (3.3-4.9); ALBUMIN/GLOBULIN RATIO 1.25; ALKALINE PHOSPHATASE 144 IU/L (42-121); ANION GAP 17 (8-16); ASPARTATE AMINO TRANSFERASE 20 IU/L (15-46); BLOOD UREA NITROGEN 47 mg/dl (7-20); CALCIUM 10.3 mg/dl (8.4-10.2); CARBON DIOXIDE 25 mmol/L (21-31); CHLORIDE 107 mmol/L (97-110); CREATININE 8.01 mg/dl (0.44-1.00); GLUCOSE 94 mg/dl (70-220); POTASSIUM 4.7 mmol/L (3.5-5.1); SODIUM 144 mmol/L (135-144); TOTAL PROTEIN 7.9 g/dl (6.1-8.1)
[2017-11-15 14:22] LABS: INR 0.92; PROTIME 12.4 Sec (11.9-14.9)
[2017-11-15 14:23] LABS: PARTIAL THROMBOPLASTIN TIME 31.3 Sec (25.0-35.0)
[2017-11-15] MEDS ORDERED: ACETAMINOPHEN 325 MG TAB PO (14:30)
[2017-11-15] MEDS ORDERED: ONDANSETRON 4 MG INJ IV (14:30)
[2017-11-15] MEDS: VANCOMYCIN 1 GM (PMX) 250 ML IVPB (14:49)
[2017-11-15] MEDS ORDERED: NACL 0.9% 3 ML SYG IV (17:00)
[2017-11-15] MEDS ORDERED: VANCOMYCIN IV PER PHARMACY XX ×2 (17:00)
[2017-11-15] MEDS: HYDROCODONE/APAP (5/325) TAB PO (18:01)
[2017-11-15] MEDS: METOPROLOL 25 MG TAB PO (20:18)
[2017-11-15] MEDS: HEPARIN 5,000 UNIT/0.5 ML VIAL SC (20:23)
[2017-11-15] MEDS: SEVELAMER CARBONATE 0.8 GM PKT PO (20:26)
[2017-11-15] MEDS: ATORVASTATIN 40 MG TAB PO (20:28)
[2017-11-15] MEDS: hydrALAzine 20 MG INJ IV (21:18)
[2017-11-15] MEDS: NIFEdipine (XL) 60 MG TAB PO (21:38)
[2017-11-16] MEDS: HYDROCODONE/APAP (5/325) TAB PO ×3 (03:18→22:34)
[2017-11-16] MEDS: hydrALAzine 20 MG INJ IV ×2 (03:25→22:17)
[2017-11-16 05:11] LABS: ADD MAN DIFF? NO
[2017-11-16 05:18] LABS: BASOPHILS % 0.4 % (0.0-2.0); EOSINOPHILS # 0.4 10^3/ul (0.0-0.5); EOSINOPHILS % 7.2 % (0.0-7.0); HEMATOCRIT 26.4 % (37.0-47.0); HEMOGLOBIN 8.3 g/dl (12.0-16.0); LYMPHOCYTES # 1.3 10^3/ul (0.8-2.9); LYMPHOCYTES % 26.2 % (15.0-51.0); MEAN CORPUSCULAR HEMOGLOBIN 29.3 pg (29.0-33.0); MEAN CORPUSCULAR HGB CONC 31.4 g/dl (32.0-37.0); MEAN CORPUSCULAR VOLUME 93.3 fl (82.0-101.0); MEAN PLATELET VOLUME 10.3 fl (7.4-10.4); MONOCYTE # 0.3 10^3/ul (0.3-0.9); NEUTROPHIL # 2.9 10^3/ul (1.6-7.5); PLATELET COUNT 157 10^3/UL (140-415); RED BLOOD COUNT 2.83 10^6/ul (4.20-5.40); RED CELL DISTRIBUTION WIDTH 17.1 % (11.5-14.5)
[2017-11-16 05:18] LABS: WHITE BLOOD COUNT 4.9 10^3/ul (4.8-10.8)
[2017-11-16 05:25] LABS: HEMOGLOBIN A1C 4.7 % (0-5.9)
[2017-11-16 05:37] LABS: ALANINE AMINOTRANSFERASE 6 IU/L (13-69); ALBUMIN 4.4 g/dl (3.3-4.9); ALBUMIN/GLOBULIN RATIO 1.22; ALKALINE PHOSPHATASE 143 IU/L (42-121); ANION GAP 18 (8-16); ASPARTATE AMINO TRANSFERASE 55 IU/L (15-46); BLOOD UREA NITROGEN 56 mg/dl (7-20); CALCIUM 9.9 mg/dl (8.4-10.2); CARBON DIOXIDE 22 mmol/L (21-31); CHLORIDE 106 mmol/L (97-110); CREATININE 8.38 mg/dl (0.44-1.00); GLUCOSE 94 mg/dl (70-220); POTASSIUM 5.5 mmol/L (3.5-5.1); SODIUM 140 mmol/L (135-144)
[2017-11-16] MEDS: PANTOPRAZOLE (EC) 40 MG TAB PO (06:27)
[2017-11-16] MEDS: METOPROLOL 25 MG TAB PO ×2 (08:18→21:03)
[2017-11-16] MEDS: SEVELAMER CARBONATE 0.8 GM PKT PO ×3 (08:18→17:32)
[2017-11-16] MEDS: NIFEdipine (XL) 60 MG TAB PO ×2 (08:18→21:05)
[2017-11-16] MEDS: HEPARIN 5,000 UNIT/0.5 ML VIAL SC ×2 (08:19→21:04)
[2017-11-16] MEDS ORDERED: AMLODIPINE 10 MG TAB PO (09:00)
[2017-11-16] MEDS ORDERED: ALBUMIN HUMAN 25% 100 ML IV (13:00)
[2017-11-16] MEDS: HEPARIN 1000 UNITS/ML 10 ML INJ CATHETER (16:20)
[2017-11-16] MEDS: AL HYDROX/MG HYDROX/SIMETH 30 ML CUP PO (21:36)
[2017-11-16] MEDS: LORAZEPAM 1 MG TAB PO (21:36)
[2017-11-16] MEDS: ATORVASTATIN 40 MG TAB PO (21:36)
[2017-11-17] MEDS: PANTOPRAZOLE (EC) 40 MG TAB PO (06:25)
[2017-11-17 06:28] LABS: ADD MAN DIFF? NO
[2017-11-17 06:29] LABS: BASOPHILS % 0.9 % (0.0-2.0); EOSINOPHILS # 0.3 10^3/ul (0.0-0.5); EOSINOPHILS % 7.2 % (0.0-7.0); HEMATOCRIT 25.4 % (37.0-47.0); HEMOGLOBIN 8.3 g/dl (12.0-16.0); IMMATURE GRANS #M 0.01 10^3/ul; IMMATURE GRANS % (M) 0.2 %; LYMPHOCYTES # 1.4 10^3/ul (0.8-2.9); LYMPHOCYTES % 33.3 % (15.0-51.0); MEAN CORPUSCULAR HEMOGLOBIN 30.7 pg (29.0-33.0); MEAN CORPUSCULAR HGB CONC 32.7 g/dl (32.0-37.0); MEAN CORPUSCULAR VOLUME 94.1 fl (82.0-101.0); MEAN PLATELET VOLUME 9.9 fl (7.4-10.4); MONOCYTE # 0.3 10^3/ul (0.3-0.9); MONOCYTES % 6.3 % (0.0-11.0); NEUTROPHIL # 2.2 10^3/ul (1.6-7.5); NEUTROPHILS % 52.1 % (39.0-77.0); PLATELET COUNT 157 10^3/UL (140-415); RED CELL DISTRIBUTION WIDTH 16.9 % (11.5-14.5)
[2017-11-17 06:29] LABS: WHITE BLOOD COUNT 4.3 10^3/ul (4.8-10.8)
[2017-11-17 06:53] LABS: INR 0.93; PARTIAL THROMBOPLASTIN TIME 33.7 Sec (25.0-35.0); PROTIME 12.5 Sec (11.9-14.9)
[2017-11-17 06:54] LABS: ALANINE AMINOTRANSFERASE 14 IU/L (13-69); ALBUMIN/GLOBULIN RATIO 1.21; ALKALINE PHOSPHATASE 149 IU/L (42-121); ANION GAP 19 (8-16); ASPARTATE AMINO TRANSFERASE 18 IU/L (15-46); BLOOD UREA NITROGEN 27 mg/dl (7-20); CALCIUM 9.7 mg/dl (8.4-10.2); CARBON DIOXIDE 27 mmol/L (21-31); CHLORIDE 102 mmol/L (97-110); CREATININE 5.67 mg/dl (0.44-1.00); GLUCOSE 100 mg/dl (70-220); MAGNESIUM 2.4 mg/dl (1.7-2.5); POTASSIUM 3.9 mmol/L (3.5-5.1); SODIUM 144 mmol/L (135-144); TOTAL PROTEIN 7.3 g/dl (6.1-8.1)
[2017-11-17 06:58] LABS: VANCOMYCIN,RANDOM 9.8 ug/ml
[2017-11-17] MEDS ORDERED: METOCLOPRAMIDE 10 MG INJ (07:00)
[2017-11-17] MEDS ORDERED: DEXAMETHASONE 4 MG/ML 1 ML INJ (07:00)
[2017-11-17] MEDS ORDERED: FENTAnyl 50 MCG/ML VIAL (07:46)
[2017-11-17] MEDS ORDERED: PROPOFOL 20 ML (07:48)
[2017-11-17] MEDS ORDERED: MIDAZOLAM 1 MG/ML 2 ML INJ (07:48)
[2017-11-17] MEDS ORDERED: CEFAZOLIN 1 GM INJ (07:49)
[2017-11-17] MEDS ORDERED: LIDOCAINE 2% (SDV) 5 ML INJ (07:50)
[2017-11-17] MEDS ORDERED: ROPIVACAINE 0.5 % 30 ML VIAL (07:52)
[2017-11-17] MEDS ORDERED: DIPHENHYDRAMINE 50 MG INJ IV (08:00)
[2017-11-17] MEDS: SEVELAMER CARBONATE 0.8 GM PKT PO ×3 (08:00→18:00)
[2017-11-17] MEDS ORDERED: HYDROmorphONE 1 MG/5 ML IV SYRINGE IV ×2 (08:00)
[2017-11-17] MEDS ORDERED: hydrALAzine 20 MG INJ IV (08:00)
[2017-11-17] MEDS ORDERED: FENTAnyl 50 MCG/ML VIAL IV ×2 (08:00)
[2017-11-17] MEDS ORDERED: IPRATROPIUM (NEB) 0.5 MG/2.5 ML AMP HHN (08:00)
[2017-11-17] MEDS ORDERED: ONDANSETRON 4 MG INJ IV (08:00)
[2017-11-17] MEDS ORDERED: LABETALOL HCL 20MG INJ IV (08:00)
[2017-11-17] MEDS ORDERED: HALOPERIDOL 5 MG INJ IV (08:00)
[2017-11-17] MEDS: NIFEdipine (XL) 60 MG TAB PO ×2 (08:30→20:28)
[2017-11-17] MEDS: HEPARIN 5,000 UNIT/0.5 ML VIAL SC ×2 (08:30→20:31)
[2017-11-17] MEDS: METOPROLOL 25 MG TAB PO ×2 (08:30→20:28)
[2017-11-17] MEDS ORDERED: ONDANSETRON 4 MG INJ (09:02)
[2017-11-17] MEDS: BUPIVACAINE 0.5% (SDV) 30 ML INJ (09:05)
[2017-11-17] MEDS: HEPARIN 1000 UNITS/ML 10 ML INJ (09:06)
[2017-11-17] MEDS: LIDOCAINE 1% (MPF) 30 ML INJ (09:06)
[2017-11-17] MEDS ORDERED: HEPARIN 1000 UNITS/ML 10 ML INJ (09:34)
[2017-11-17] MEDS: GELATIN SIZE 100 SPONGE (10:27)
[2017-11-17] MEDS: THROMBIN 5000 UNIT VIAL (10:28)
[2017-11-17] MEDS: POLYMYXIN/BACITRACIN 1L IRRIG (10:44)
[2017-11-17] MEDS: HYDROCODONE/APAP (5/325) TAB PO (12:45)
[2017-11-17] MEDS: VANCOMYCIN 750 MG in SOD CHLORIDE 0.9% 150 ML IVPB (12:45)
[2017-11-17] MEDS: HEPARIN 1000 UNITS/ML 10 ML INJ CATHETER (17:30)
[2017-11-17] MEDS: ATORVASTATIN 40 MG TAB PO (20:28)
[2017-11-18] MEDS: hydrALAzine 20 MG INJ IV ×2 (03:50→14:37)
[2017-11-18] MEDS: PANTOPRAZOLE (EC) 40 MG TAB PO ×2 (06:08→09:30)
[2017-11-18] MEDS: SEVELAMER CARBONATE 0.8 GM PKT PO ×3 (09:29→18:10)
[2017-11-18] MEDS: NIFEdipine (XL) 60 MG TAB PO ×2 (09:30→20:12)
[2017-11-18] MEDS: METOPROLOL 25 MG TAB PO ×2 (09:31→20:12)
[2017-11-18] MEDS: HEPARIN 5,000 UNIT/0.5 ML VIAL SC ×2 (09:38→20:15)
[2017-11-18] MEDS: ATORVASTATIN 40 MG TAB PO (20:13)
[2017-11-18] MEDS: HYDROCODONE/APAP (5/325) TAB PO (20:48)
[2017-11-19] MEDS: PANTOPRAZOLE (EC) 40 MG TAB PO (09:25)
[2017-11-19] MEDS: SEVELAMER CARBONATE 0.8 GM PKT PO ×3 (09:25→18:02)
[2017-11-19] MEDS: NIFEdipine (XL) 60 MG TAB PO ×2 (09:26→21:00)
[2017-11-19] MEDS: METOPROLOL 25 MG TAB PO ×2 (09:26→20:59)
[2017-11-19] MEDS: HEPARIN 5,000 UNIT/0.5 ML VIAL SC ×2 (09:30→21:07)
[2017-11-19] MEDS: HYDROCODONE/APAP (5/325) TAB PO ×2 (09:36→16:15)
[2017-11-19 12:32] LABS: ADD MAN DIFF? NO
[2017-11-19 12:38] LABS: WHITE BLOOD COUNT 5.8 10^3/ul (4.8-10.8)
[2017-11-19 12:38] LABS: BASOPHILS % 0.7 % (0.0-2.0); EOSINOPHILS # 0.2 10^3/ul (0.0-0.5); EOSINOPHILS % 3.5 % (0.0-7.0); HEMATOCRIT 23.9 % (37.0-47.0); HEMOGLOBIN 7.5 g/dl (12.0-16.0); IMMATURE GRANS #M 0.02 10^3/ul; IMMATURE GRANS % (M) 0.3 %; LYMPHOCYTES # 1.4 10^3/ul (0.8-2.9); LYMPHOCYTES % 24.9 % (15.0-51.0); MEAN CORPUSCULAR HEMOGLOBIN 29.3 pg (29.0-33.0); MEAN CORPUSCULAR HGB CONC 31.4 g/dl (32.0-37.0); MEAN CORPUSCULAR VOLUME 93.4 fl (82.0-101.0); MEAN PLATELET VOLUME 8.9 fl (7.4-10.4); MONOCYTE # 0.3 10^3/ul (0.3-0.9); MONOCYTES % 5.2 % (0.0-11.0); NEUTROPHIL # 3.8 10^3/ul (1.6-7.5); NEUTROPHILS % 65.4 % (39.0-77.0); PLATELET COUNT 170 10^3/UL (140-415); RED BLOOD COUNT 2.56 10^6/ul (4.20-5.40); RED CELL DISTRIBUTION WIDTH 16.8 % (11.5-14.5)
[2017-11-19 13:06] LABS: ANION GAP 15 (8-16); BLOOD UREA NITROGEN 45 mg/dl (7-20); CALCIUM 9.6 mg/dl (8.4-10.2); CARBON DIOXIDE 28 mmol/L (21-31); CHLORIDE 99 mmol/L (97-110); CREATININE 6.64 mg/dl (0.44-1.00); GLUCOSE 109 mg/dl (70-220); POTASSIUM 4.2 mmol/L (3.5-5.1); SODIUM 138 mmol/L (135-144)
[2017-11-19] MEDS: hydrALAzine 20 MG INJ IV (14:11)
[2017-11-19] MEDS: ATORVASTATIN 40 MG TAB PO (20:59)
[2017-11-20 05:34] LABS: VANCOMYCIN,RANDOM 11.1 ug/ml
[2017-11-20] MEDS: SEVELAMER CARBONATE 0.8 GM PKT PO ×3 (09:07→18:09)
[2017-11-20] MEDS: METOPROLOL 25 MG TAB PO (09:08)
[2017-11-20] MEDS: NIFEdipine (XL) 60 MG TAB PO (09:08)
[2017-11-20] MEDS: HEPARIN 5,000 UNIT/0.5 ML VIAL SC (09:21)
[2017-11-20] MEDS ORDERED: SOD CHLORIDE 0.9% 250 ML IV* (14:36)
[2017-11-20] MEDS: HEPARIN 1000 UNITS/ML 10 ML INJ CATHETER (17:05)
[2017-11-20] MEDS: VANCOMYCIN 750 MG in SOD CHLORIDE 0.9% 150 ML IVPB (18:05)
== END 2017-11-20 20:05 | disposition home health service (06) | DRG 264 ==
LOC: E/R 11:01 → 2NE 11-16 21:19 → MS3 14:19
PROC: 03170ZD Bypass Right Brachial Artery to Upper Arm Vein, Open Approach (ICD-10-PCS; principal; 2017-11-17 07:30)
PROC: 03PY07Z Removal of Autologous Tissue Substitute from Upper Artery, Open Approach (ICD-10-PCS; 2017-11-17 07:30)
PROC: 5A1D70Z Performance of Urinary Filtration, Intermittent, Less than 6 Hours Per Day (ICD-10-PCS; 2017-11-17 07:53)
PROC: 5A1D70Z Performance of Urinary Filtration, Intermittent, Less than 6 Hours Per Day (ICD-10-PCS; 2017-11-17 07:53)
PROC: 5A1D70Z Performance of Urinary Filtration, Intermittent, Less than 6 Hours Per Day (ICD-10-PCS; 2017-11-17 07:53)
DX: T82.7XXA Infection and inflammatory reaction due to other cardiac and vascular devices, implants and grafts, initial encounter (principal); N18.6 End stage renal disease; I12.0 Hypertensive chronic kidney disease with stage 5 chronic kidney disease or end stage renal disease; E11.42 Type 2 diabetes mellitus with diabetic polyneuropathy; R13.10 Dysphagia, unspecified; E11.22 Type 2 diabetes mellitus with diabetic chronic kidney disease; I16.0 Hypertensive urgency; E78.5 Hyperlipidemia, unspecified; J44.9 Chronic obstructive pulmonary disease, unspecified; Y83.2 Surgical operation with anastomosis, bypass or graft as the cause of abnormal reaction of the patient, or of later complication, without mention of misadventure at the time of the procedure; Y92.019 Unspecified place in single-family (private) house as the place of occurrence of the external cause; Z99.2 Dependence on renal dialysis; Z79.4 Long term (current) use of insulin; Z87.891 Personal history of nicotine dependence
CPT/HCPCS: 36415; 80048; 80053; 80202; 83036; 83735; 85025; 85610; 85730; 87040; 88304; 90935; 96374; 99285-25

== ENCOUNTER 2017-11-26 16:53 | Inpatient (IN) | payer MEDICARE, OTHER ==
[2017-11-26] MEDS: CEFEPIME 2GM/50 ML (PMX) 50 ML IVPB (18:42)
[2017-11-26 18:47] LABS: ADD MAN DIFF? NO
[2017-11-26 18:55] LABS: WHITE BLOOD COUNT 5.2 10^3/ul (4.8-10.8)
[2017-11-26 18:55] LABS: BASOPHILS % 0.6 % (0.0-2.0); EOSINOPHILS # 0.3 10^3/ul (0.0-0.5); HEMATOCRIT 22.7 % (37.0-47.0); HEMOGLOBIN 7.1 g/dl (12.0-16.0); MEAN CORPUSCULAR HEMOGLOBIN 30.3 pg (29.0-33.0); MEAN CORPUSCULAR HGB CONC 31.3 g/dl (32.0-37.0); MEAN PLATELET VOLUME 9.3 fl (7.4-10.4); MONOCYTE # 0.3 10^3/ul (0.3-0.9); MONOCYTES % 5.6 % (0.0-11.0); NEUTROPHIL # 3.5 10^3/ul (1.6-7.5); NEUTROPHILS % 68.6 % (39.0-77.0); PLATELET COUNT 164 10^3/UL (140-415); RED BLOOD COUNT 2.34 10^6/ul (4.20-5.40); RED CELL DISTRIBUTION WIDTH 16.1 % (11.5-14.5)
[2017-11-26 19:18] LABS: ANION GAP 20 (8-16); BLOOD UREA NITROGEN 66 mg/dl (7-20); CALCIUM 9.9 mg/dl (8.4-10.2); CARBON DIOXIDE 24 mmol/L (21-31); CHLORIDE 102 mmol/L (97-110); CREATININE 7.03 mg/dl (0.44-1.00); GLUCOSE 115 mg/dl (70-220); SODIUM 140 mmol/L (135-144)
[2017-11-26] MEDS: VANCOMYCIN 1 GM (PMX) 250 ML IVPB (19:27)
[2017-11-26 19:33] LABS: POTASSIUM 5.6 mmol/L (3.5-5.1)
[2017-11-26] MEDS: ONDANSETRON 4 MG INJ IV (21:10)
[2017-11-26] MEDS: HYDROmorphONE 1 MG/ML SYG IV (21:10)
[2017-11-26] MEDS: NICARDipine HCL 30 MG CAPSULE PO (21:11)
[2017-11-26] MEDS: ENOXAPARIN 60 MG/0.6 ML SYG SC (21:11)
[2017-11-26] MEDS ORDERED: ONDANSETRON 4 MG INJ IV (21:30)
[2017-11-26] MEDS ORDERED: ACETAMINOPHEN 325 MG TAB PO (21:30)
[2017-11-26] MEDS ORDERED: BISACODYL (EC) 5 MG TAB PO (22:00)
[2017-11-26] MEDS ORDERED: VANCOMYCIN IV PER PHARMACY XX (22:00)
[2017-11-26] MEDS ORDERED: NACL 0.9% 3 ML SYG IV (22:00)
[2017-11-26] MEDS ORDERED: DOCUSATE SODIUM 100 MG CAP PO (22:00)
[2017-11-26] MEDS: METOPROLOL 25 MG TAB PO (22:50)
[2017-11-27] MEDS: ACETAMINOPHEN 325 MG TAB PO (02:31)
[2017-11-27 05:25] LABS: ADD MAN DIFF? NO
[2017-11-27 05:32] LABS: ABNORMAL IP MESSAGE 1; BASOPHILS % 0.5 % (0.0-2.0); EOSINOPHILS # 0.3 10^3/ul (0.0-0.5); HEMATOCRIT 21.1 % (37.0-47.0); LYMPHOCYTES # 1.2 10^3/ul (0.8-2.9); LYMPHOCYTES % 18.9 % (15.0-51.0); MEAN CORPUSCULAR HEMOGLOBIN 29.8 pg (29.0-33.0); MEAN CORPUSCULAR HGB CONC 30.8 g/dl (32.0-37.0); MEAN CORPUSCULAR VOLUME 96.8 fl (82.0-101.0); MEAN PLATELET VOLUME 8.7 fl (7.4-10.4); MONOCYTE # 0.4 10^3/ul (0.3-0.9); MONOCYTES % 5.9 % (0.0-11.0); NEUTROPHIL # 4.3 10^3/ul (1.6-7.5); NEUTROPHILS % 69.5 % (39.0-77.0); PLATELET COUNT 146 10^3/UL (140-415); RED BLOOD COUNT 2.18 10^6/ul (4.20-5.40); RED CELL DISTRIBUTION WIDTH 16.2 % (11.5-14.5)
[2017-11-27 05:32] LABS: WHITE BLOOD COUNT 6.2 10^3/ul (4.8-10.8)
[2017-11-27 05:36] LABS: POSITIVE DIFF @See below
[2017-11-27 05:40] LABS: HEMOGLOBIN 6.5 g/dl (12.0-16.0)
[2017-11-27 05:45] LABS: ALANINE AMINOTRANSFERASE 15 IU/L (13-69); ALBUMIN 3.5 g/dl (3.3-4.9); ALBUMIN/GLOBULIN RATIO 1.16; ALKALINE PHOSPHATASE 147 IU/L (42-121); ANION GAP 20 (8-16); ASPARTATE AMINO TRANSFERASE 21 IU/L (15-46); BLOOD UREA NITROGEN 74 mg/dl (7-20); CALCIUM 9.3 mg/dl (8.4-10.2); CARBON DIOXIDE 22 mmol/L (21-31); CHLORIDE 105 mmol/L (97-110); CREATININE 7.72 mg/dl (0.44-1.00); GLUCOSE 96 mg/dl (70-220); SODIUM 141 mmol/L (135-144); TOTAL PROTEIN 6.5 g/dl (6.1-8.1)
[2017-11-27 05:54] LABS: POTASSIUM 6.1 mmol/L (3.5-5.1)
[2017-11-27] MEDS: NA POLYST SULFON 15 GM/60 ML BTL PO (07:07)
[2017-11-27] MEDS: PANTOPRAZOLE (EC) 40 MG TAB PO (07:07)
[2017-11-27] MEDS: DEXTROSE 50% 50 ML SYRINGE IV (08:50)
[2017-11-27] MEDS: SEVELAMER CARBONATE 0.8 GM PKT PO ×3 (08:50→18:10)
[2017-11-27] MEDS: MULTIVIT/CA CARB/B CMPLX/FA TAB PO (08:51)
[2017-11-27] MEDS: INSULIN REGULAR, HUMAN 100 UNIT/1 ML 3ML VIAL IVP (08:55)
[2017-11-27] MEDS: HYDROCODONE/APAP (5/325) TAB PO ×3 (08:56→20:26)
[2017-11-27] MEDS: METOPROLOL 25 MG TAB PO ×2 (09:00→20:26)
[2017-11-27] MEDS ORDERED: AMLODIPINE 10 MG TAB PO (09:00)
[2017-11-27] MEDS ORDERED: SODIUM CHLORIDE 0.9% 1L BAG IV (09:00)
[2017-11-27] MEDS ORDERED: ALBUMIN HUMAN 25% 100 ML IV (09:00)
[2017-11-27 09:43] LABS: HEPATITIS B SURFACE ANTIGEN NEGATIVE (NEGATIVE)
[2017-11-27 11:52] LABS: IMMEDIATE SPIN CROSSMATCH 1 3
[2017-11-27] MEDS: NIFEdipine (XL) 60 MG TAB PO ×3 (13:00→20:25)
[2017-11-27] MEDS: HEPARIN 1000 UNITS/ML 10 ML INJ CATHETER (14:08)
[2017-11-27 15:04] LABS: ADD MAN DIFF? NO
[2017-11-27 15:05] LABS: BASOPHILS % 0.8 % (0.0-2.0); EOSINOPHILS # 0.3 10^3/ul (0.0-0.5); EOSINOPHILS % 5.3 % (0.0-7.0); HEMATOCRIT 29.2 % (37.0-47.0); HEMOGLOBIN 9.7 g/dl (12.0-16.0); LYMPHOCYTES # 0.7 10^3/ul (0.8-2.9); LYMPHOCYTES % 13.9 % (15.0-51.0); MEAN CORPUSCULAR HEMOGLOBIN 29.9 pg (29.0-33.0); MEAN CORPUSCULAR HGB CONC 33.2 g/dl (32.0-37.0); MEAN CORPUSCULAR VOLUME 90.1 fl (82.0-101.0); MEAN PLATELET VOLUME 9.3 fl (7.4-10.4); MONOCYTE # 0.3 10^3/ul (0.3-0.9); MONOCYTES % 5.5 % (0.0-11.0); NEUTROPHIL # 3.8 10^3/ul (1.6-7.5); NEUTROPHILS % 74.3 % (39.0-77.0); PLATELET COUNT 153 10^3/UL (140-415); RED BLOOD COUNT 3.24 10^6/ul (4.20-5.40); RED CELL DISTRIBUTION WIDTH 17.2 % (11.5-14.5)
[2017-11-27 15:05] LABS: WHITE BLOOD COUNT 5.1 10^3/ul (4.8-10.8)
[2017-11-27 15:22] LABS: ANION GAP 16 (8-16); BLOOD UREA NITROGEN 25 mg/dl (7-20); CALCIUM 9.1 mg/dl (8.4-10.2); CARBON DIOXIDE 28 mmol/L (21-31); CHLORIDE 99 mmol/L (97-110); CREATININE 3.21 mg/dl (0.44-1.00); GLUCOSE 126 mg/dl (70-220); IRON 151 ug/dl (35-150); POTASSIUM 3.7 mmol/L (3.5-5.1); SODIUM 139 mmol/L (135-144)
[2017-11-27 15:32] LABS: % IRON SATURATION 78 % SAT (22-52); TOTAL IRON BINDING CAPACITY 193 ug/dl (241-421)
[2017-11-27] MEDS: hydrALAzine 20 MG INJ IV (15:53)
[2017-11-27] MEDS: ATORVASTATIN 40 MG TAB PO (20:26)
[2017-11-28] MEDS: ACETAMINOPHEN 325 MG TAB PO (00:45)
[2017-11-28 05:17] LABS: ADD MAN DIFF? NO
[2017-11-28 05:20] LABS: WHITE BLOOD COUNT 5.3 10^3/ul (4.8-10.8)
[2017-11-28 05:20] LABS: BASOPHILS % 0.8 % (0.0-2.0); EOSINOPHILS # 0.3 10^3/ul (0.0-0.5); EOSINOPHILS % 5.3 % (0.0-7.0); HEMATOCRIT 28.8 % (37.0-47.0); HEMOGLOBIN 9.6 g/dl (12.0-16.0); LYMPHOCYTES % 18.2 % (15.0-51.0); MEAN CORPUSCULAR HEMOGLOBIN 29.4 pg (29.0-33.0); MEAN CORPUSCULAR HGB CONC 33.3 g/dl (32.0-37.0); MEAN CORPUSCULAR VOLUME 88.3 fl (82.0-101.0); MONOCYTE # 0.3 10^3/ul (0.3-0.9); MONOCYTES % 6.2 % (0.0-11.0); NEUTROPHIL # 3.7 10^3/ul (1.6-7.5); NEUTROPHILS % 69.3 % (39.0-77.0); PLATELET COUNT 157 10^3/UL (140-415); RED BLOOD COUNT 3.26 10^6/ul (4.20-5.40)
[2017-11-28 05:48] LABS: VANCOMYCIN,RANDOM 14.6 ug/ml
[2017-11-28 05:59] LABS: ANION GAP 15 (8-16); BLOOD UREA NITROGEN 41 mg/dl (7-20); CALCIUM 9.7 mg/dl (8.4-10.2); CARBON DIOXIDE 29 mmol/L (21-31); CHLORIDE 97 mmol/L (97-110); CREATININE 4.85 mg/dl (0.44-1.00); GLUCOSE 88 mg/dl (70-220); MAGNESIUM 1.9 mg/dl (1.7-2.5); PHOSPHORUS 4.7 mg/dl (2.5-4.9); POTASSIUM 4.6 mmol/L (3.5-5.1); SODIUM 136 mmol/L (135-144)
[2017-11-28] MEDS: SEVELAMER CARBONATE 0.8 GM PKT PO ×3 (08:35→17:38)
[2017-11-28] MEDS: MULTIVIT/CA CARB/B CMPLX/FA TAB PO (08:35)
[2017-11-28] MEDS: APIXABAN 5 MG TABLET PO (08:35)
[2017-11-28] MEDS: PANTOPRAZOLE (EC) 40 MG TAB PO (08:35)
[2017-11-28] MEDS: NIFEdipine (XL) 60 MG TAB PO ×2 (08:35→20:24)
[2017-11-28] MEDS: METOPROLOL 25 MG TAB PO (08:36)
[2017-11-28] MEDS: HYDROCODONE/APAP (5/325) TAB PO (15:25)
[2017-11-28] MEDS ORDERED: VANCOMYCIN 750 MG in SOD CHLORIDE 0.9% 150 ML IVPB (17:00)
[2017-11-28] MEDS: ATORVASTATIN 40 MG TAB PO (20:24)
[2017-11-28] MEDS: METOPROLOL 50 MG TAB PO (20:25)
[2017-11-28] MEDS: HEPARIN 5,000 UNIT/0.5 ML VIAL SC (20:30)
[2017-11-29] MEDS: HYDROCODONE/APAP (5/325) TAB PO ×3 (01:49→18:24)
[2017-11-29 05:43] LABS: ADD MAN DIFF? NO
[2017-11-29 05:47] LABS: BASOPHILS % 0.7 % (0.0-2.0); EOSINOPHILS # 0.3 10^3/ul (0.0-0.5); EOSINOPHILS % 5.7 % (0.0-7.0); HEMOGLOBIN 9.4 g/dl (12.0-16.0); LYMPHOCYTES # 1.2 10^3/ul (0.8-2.9); LYMPHOCYTES % 28.1 % (15.0-51.0); MEAN CORPUSCULAR HEMOGLOBIN 30.1 pg (29.0-33.0); MEAN CORPUSCULAR HGB CONC 33.6 g/dl (32.0-37.0); MEAN CORPUSCULAR VOLUME 89.7 fl (82.0-101.0); MEAN PLATELET VOLUME 9.5 fl (7.4-10.4); MONOCYTE # 0.3 10^3/ul (0.3-0.9); MONOCYTES % 7.5 % (0.0-11.0); NEUTROPHIL # 2.5 10^3/ul (1.6-7.5); NEUTROPHILS % 57.8 % (39.0-77.0); PLATELET COUNT 157 10^3/UL (140-415); RED BLOOD COUNT 3.12 10^6/ul (4.20-5.40); RED CELL DISTRIBUTION WIDTH 16.9 % (11.5-14.5)
[2017-11-29 05:47] LABS: WHITE BLOOD COUNT 4.4 10^3/ul (4.8-10.8)
[2017-11-29 06:18] LABS: ANION GAP 17 (8-16); BLOOD UREA NITROGEN 63 mg/dl (7-20); CALCIUM 9.5 mg/dl (8.4-10.2); CARBON DIOXIDE 26 mmol/L (21-31); CHLORIDE 97 mmol/L (97-110); CREATININE 6.75 mg/dl (0.44-1.00); GLUCOSE 85 mg/dl (70-220); PHOSPHORUS 5.9 mg/dl (2.5-4.9); POTASSIUM 4.9 mmol/L (3.5-5.1); SODIUM 135 mmol/L (135-144)
[2017-11-29] MEDS: MULTIVIT/CA CARB/B CMPLX/FA TAB PO (08:28)
[2017-11-29] MEDS: PANTOPRAZOLE (EC) 40 MG TAB PO (08:28)
[2017-11-29] MEDS: SEVELAMER CARBONATE 0.8 GM PKT PO ×3 (08:29→17:46)
[2017-11-29] MEDS: NIFEdipine (XL) 60 MG TAB PO ×2 (08:29→20:11)
[2017-11-29] MEDS: METOPROLOL 50 MG TAB PO (08:29)
[2017-11-29] MEDS: HEPARIN 5,000 UNIT/0.5 ML VIAL SC ×2 (08:38→20:12)
[2017-11-29] MEDS: METOPROLOL 100 MG TAB PO ×2 (10:00→20:11)
[2017-11-29] MEDS ORDERED: VANCOMYCIN 750 MG in SOD CHLORIDE 0.9% 150 ML IVPB (12:00)
[2017-11-29] MEDS ORDERED: VANCOMYCIN IV PER PHARMACY XX (12:00)
[2017-11-29] MEDS: CLONIDINE 0.1 MG/24 HR PATCH TRANSDERM (15:20)
[2017-11-29] MEDS: VANCOMYCIN 750 MG in SOD CHLORIDE 0.9% 150 ML IVPB (15:30)
[2017-11-29] MEDS: HEPARIN 1000 UNITS/ML 10 ML INJ CATHETER (19:23)
[2017-11-29] MEDS: ACETAMINOPHEN 325 MG TAB PO (20:10)
[2017-11-29] MEDS: ATORVASTATIN 40 MG TAB PO (20:11)
[2017-11-29] MEDS: morphine 2 MG INJ IV (23:03)
[2017-11-30] MEDS: HYDROCODONE/APAP (5/325) TAB PO ×2 (02:05→14:23)
[2017-11-30] MEDS: SEVELAMER CARBONATE 0.8 GM PKT PO ×2 (08:17→14:15)
[2017-11-30] MEDS: morphine 2 MG INJ IV ×2 (08:18→11:57)
[2017-11-30] MEDS: HEPARIN 5,000 UNIT/0.5 ML VIAL SC ×2 (09:00→09:20)
[2017-11-30] MEDS: NIFEdipine (XL) 60 MG TAB PO (09:09)
[2017-11-30] MEDS: PANTOPRAZOLE (EC) 40 MG TAB PO (09:09)
[2017-11-30] MEDS: METOPROLOL 100 MG TAB PO (09:09)
[2017-11-30] MEDS: MULTIVIT/CA CARB/B CMPLX/FA TAB PO (09:10)
[2017-11-30] MEDS: hydrALAzine 20 MG INJ IV (14:23)
== END 2017-11-30 16:25 | disposition home health service (06) | DRG 314 ==
LOC: E/R 16:53 → MS1 21:05
PROC: 5A1D70Z Performance of Urinary Filtration, Intermittent, Less than 6 Hours Per Day (ICD-10-PCS; 2017-11-27)
PROC: 30233N1 Transfusion of Nonautologous Red Blood Cells into Peripheral Vein, Percutaneous Approach (ICD-10-PCS; 2017-11-27)
PROC: 5A1D70Z Performance of Urinary Filtration, Intermittent, Less than 6 Hours Per Day (ICD-10-PCS; 2017-11-28)
PROC: 5A1D70Z Performance of Urinary Filtration, Intermittent, Less than 6 Hours Per Day (ICD-10-PCS; principal; 2017-11-30)
DX: T82.7XXA Infection and inflammatory reaction due to other cardiac and vascular devices, implants and grafts, initial encounter (principal); N18.6 End stage renal disease; L03.113 Cellulitis of right upper limb; I82.611 Acute embolism and thrombosis of superficial veins of right upper extremity; I12.0 Hypertensive chronic kidney disease with stage 5 chronic kidney disease or end stage renal disease; E87.5 Hyperkalemia; E78.5 Hyperlipidemia, unspecified; Y83.2 Surgical operation with anastomosis, bypass or graft as the cause of abnormal reaction of the patient, or of later complication, without mention of misadventure at the time of the procedure; Y92.019 Unspecified place in single-family (private) house as the place of occurrence of the external cause; Z99.2 Dependence on renal dialysis
CPT/HCPCS: 36415; 36430; 80048; 80053; 80202; 82728; 82962; 83540; 83735; 84100; 85025; 86850; 86900; 86901; 86920; 87340; 90935; 93971; 96374; 96375; 99285-25